=== PATIENT | female | born 1990 | race Two or more races ===

== ENCOUNTER 2017-02-12 09:49 | Emergency (ER) | payer MEDICAID ==
[~2017-02-12] VITALS: Ht 162.6 cm; Wt 68.0 kg
[2017-02-12 10:05] VITALS: BP 117/76
[2017-02-12 10:07] LABS: Urine RBC None Seen /hpf (0 - 4)
[2017-02-12 10:35] LABS: Urine Bilirubin Negative (Negative); Urine Blood Negative /uL (Negative); Urine Color Yellow (Yellow); Urine Glucose Normal (Normal); Urine Ketone Negative (Negative); Urine Mucus FEW (None Seen); Urine Nitrite Negative (Negative); Urine Squamous Epithelial Cell FEW /hpf (<5); Urine Urobilinogen Normal (Negative)
[2017-02-12 10:37] LABS: Eosinophils # (auto) 0.1 uL; Hemoglobin 12.9 g/dL (12.2-16.2); Lymphocytes # (auto) 1.7 uL; Lymphocytes % (auto) 20.9 % (10.0-50.0); Mean Corpuscular Volume 79.1 fL (80.0-100.0); Nucleated Red Blood Cells % 0.1 %
[2017-02-12 10:38] LABS: Basophils # (auto) 0 uL; Basophils % (auto) 0.4 % (0.0-2.0); Eosinophils % (auto) 1.4 % (0.0-7.0); Hematocrit 39.2 % (36.0-46.0); Mean Corpuscular Hgb Conc. 32.8 g/dL (32.0-36.0); Monocytes # (auto) 0.6 uL; Monocytes % (auto) 7.8 % (0.0-12.0); Neutrophils # (auto) 5.6 uL; Neutrophils % (auto) 69.5 % (37.0-80.0); Platelet Count (auto) 262 10^3/uL (140-450); Red Cell Distribution Width 15.5 % (11.8-14.3); White Blood Cell 8.1 10^3/uL (4.4-10.8)
[2017-02-12 10:59] LABS: Albumin 3.9 g/dL (3.4-5.0); BUN/Creatinine Ratio 21.1; Bilirubin, Total 0.4 mg/dL (0.2-1.0); Calcium 8.5 mg/dL (8.5-10.1); Potassium 3.8 mmol/L (3.5-5.1); Total Protein 8.2 g/dL (6.4-8.2)
[2017-02-12] MEDS: DONNATAL 5ml ORAL Elix (BELLADONNA ALK-PHENOBARB) PO ONE (11:40)
[2017-02-12] MEDS: ALUM & MAG HYDROX-SIMETH LIQ(MAALOX) 30 ML PO ONE (11:40)
[2017-02-12] MEDS: LIDOCAINE VISCOUS 2% 15ML UD PO ONE (11:40)
[2017-02-12] MEDS: FAMOTIDINE 20 MG TAB PO ONE (11:40)
== END 2017-02-12 12:04 | disposition home or self-care (01) ==
LOC: ER 09:59
DX: K21.9 Gastro-esophageal reflux disease without esophagitis (principal)
CPT/HCPCS: 36415; 76705; 80053; 81001; 81025; 82150; 83690; 85025

== ENCOUNTER 2020-06-27 00:33 | Emergency (ER) | payer MEDICAID ==
[~2020-06-27] VITALS: Ht 162.6 cm; Wt 65.3 kg
[2020-06-27 00:35] VITALS: BP 137/70
== END 2020-06-27 03:13 | disposition home or self-care (01) ==
LOC: ER 00:33
DX: B37.89 Other sites of candidiasis (principal); Z32.02 Encounter for pregnancy test, result negative
CPT/HCPCS: 81025

== ENCOUNTER 2020-11-21 12:24 | Emergency (ER) | payer MEDICAID ==
[~2020-11-21] VITALS: Ht 162.6 cm; Wt 58.5 kg
[2020-11-21 12:27] VITALS: BP 124/69
[2020-11-21 12:53] LABS: Basophils # (auto) 0 10 ^3/uL (0-0.2); Basophils % (auto) 0.7 % (0.0-2.0); Eosinophils # (auto) 0.2 10 ^3/uL (0-0.8); Eosinophils % (auto) 2.6 % (0.0-7.0); Hematocrit 40.1 % (36.0-46.0); Hemoglobin 13.5 g/dL (12.2-16.2); Lymphocytes # (auto) 2.1 10 ^3/uL (0.4-5.4); Lymphocytes % (auto) 30.4 % (10.0-50.0); Mean Corpuscular Hemoglobin 29.2 pg (28.0-32.0); Mean Corpuscular Hgb Conc. 33.7 g/dL (32.0-36.0); Mean Corpuscular Volume 86.7 fL (80.0-100.0); Monocytes # (auto) 0.5 10 ^3/uL (0-1.3); Monocytes % (auto) 6.5 % (0.0-12.0); Neutrophils # (auto) 4.2 10 ^3/uL (1.6-8.6); Neutrophils % (auto) 59.8 % (37.0-80.0); Nucleated Red Blood Cells % 0.1 %; Red Blood Cells 4.63 10^6/uL (4.0-5.20); Red Cell Distribution Width 13.2 % (11.8-14.3)
[2020-11-21 13:09] LABS: Albumin 3.5 g/dL (3.4-5.0); Anion Gap 8 (5-15); Blood Urea Nitrogen 18 mg/dL (7-18); Calcium 8.7 mg/dL (8.5-10.1); Carbon Dioxide 25 mmol/L (21-32); Chloride 109 mmol/L (98-107); GFR African American 146 mL/min; GFR Non-African American 121 mL/min; Glucose 96 mg/dL (74-106); Potassium 3.7 mmol/L (3.5-5.1); Sodium 142 mmol/L (136-145)
[2020-11-21 13:15] LABS: Alanine Aminotransferase 13 U/L (13-56); Alkaline Phosphatase 94 U/L (45-117); Aspartate Aminotransferase 6 U/L (15-37); Bilirubin, Total 0.4 mg/dL (0.2-1.0); Total Protein 7.4 g/dL (6.4-8.2)
== END 2020-11-21 16:29 | disposition home or self-care (01) ==
LOC: ER 12:24
DX: R07.89 Other chest pain (principal); F41.9 Anxiety disorder, unspecified; R42 Dizziness and giddiness
CPT/HCPCS: 36415; 80053; 84484; 85025; 93005

== ENCOUNTER 2022-04-27 20:20 | Emergency (ER) | payer MEDICAID ==
[~2022-04-27] VITALS: Ht 162.6 cm; Wt 70.3 kg
[2022-04-27 21:03] VITALS: BP 111/92
== END 2022-04-27 22:46 | disposition home or self-care (01) ==
LOC: ER 20:24
DX: M79.661 Pain in right lower leg (principal)
CPT/HCPCS: 93971

== ENCOUNTER → 2022-06-11 | Emergency (ER) | payer MEDICAID ==
[~2022-06-11] VITALS: Ht 162.6 cm; Wt 66.0 kg
[2022-06-11 02:25] VITALS: BP 110/66
[2022-06-11 02:45] LABS: Basophils # (auto) 0.1 10 ^3/uL (0-0.2); Basophils % (auto) 0.8 % (0.0-2.0); Eosinophils # (auto) 0.1 10 ^3/uL (0-0.8); Eosinophils % (auto) 1.4 % (0.0-7.0); Hematocrit 38.5 % (36.0-46.0); Hemoglobin 13.5 g/dL (12.2-16.2); Lymphocytes # (auto) 2.8 10 ^3/uL (0.4-5.4); Lymphocytes % (auto) 29.1 % (10.0-50.0); Mean Corpuscular Hemoglobin 29.8 pg (28.0-32.0); Monocytes # (auto) 0.8 10 ^3/uL (0-1.3); Neutrophils # (auto) 5.8 10 ^3/uL (1.6-8.6); Neutrophils % (auto) 60.7 % (37.0-80.0); Nucleated Red Blood Cells % 0.1 %; Red Blood Cells 4.53 10^6/uL (4.0-5.20); Red Cell Distribution Width 12.6 % (11.8-14.3); White Blood Cell 9.6 10^3/uL (4.4-10.8)
[2022-06-11 02:59] LABS: BUN/Creatinine Ratio 15.6 (10.0-20.0); Calcium 10.1 mg/dL (8.5-10.1); Magnesium 2.1 mg/dL (1.6-2.6)
[2022-06-11 03:02] LABS: INR 0.95 (0.9-1.15); Partial Thromboplastin Time 31.6 sec (24.6-33.4)
[2022-06-11 03:13] LABS: Albumin 3.9 g/dL (3.4-5.0); Bilirubin, Total 0.4 mg/dL (0.2-1.0); Total Protein 8.2 g/dL (6.4-8.2)
[2022-06-11 03:16] LABS: Urine Bacteria NONE SEEN /hpf (None Seen); Urine Blood Negative /uL (Negative); Urine Specific Gravity 1.001 (1.001-1.035); Urine WBC 1 /hpf (0 - 5)
== END | disposition left against medical advice (07) ==
LOC: ER 02:18
DX: R07.2 Precordial pain (principal); Z53.21 Procedure and treatment not carried out due to patient leaving prior to being seen by health care provider
CPT/HCPCS: 36415; 71045; 80053; 81001; 83735; 83880; 84484; 85025; 85610; 85730; 93005

== ENCOUNTER 2022-11-04 17:09 | Emergency (ER) | payer MEDICAID ==
[~2022-11-04] VITALS: Ht 162.6 cm; Wt 68.2 kg
[2022-11-04 17:10] VITALS: BP 107/65; RESP 16; O2SAT 99
[2022-11-04 17:43] LABS: Urine Bacteria NONE SEEN /hpf (None Seen); Urine Blood Negative /uL (Negative); Urine Clarity Clear (Clear); Urine Color Colorless (Yellow); Urine Protein, UAD Negative (Negative); Urine Specific Gravity 1.007 (1.001-1.035); Urine Urobilinogen Normal (Negative); Urine WBC 1 /hpf (0 - 5); Urine pH 6.5 (5.0-8.0)
[2022-11-04 17:45] LABS: Basophils # (auto) 0.1 10 ^3/uL (0-0.2); Eosinophils # (auto) 0.1 10 ^3/uL (0-0.8); Eosinophils % (auto) 1.5 % (0.0-7.0); Hematocrit 41.5 % (36.0-46.0); Hemoglobin 13.8 g/dL (12.2-16.2); Lymphocytes # (auto) 2.1 10 ^3/uL (0.4-5.4); Lymphocytes % (auto) 31.5 % (10.0-50.0); Mean Corpuscular Hemoglobin 28.8 pg (28.0-32.0); Mean Corpuscular Hgb Conc. 33.2 g/dL (32.0-36.0); Mean Corpuscular Volume 86.8 fL (80.0-100.0); Monocytes # (auto) 0.5 10 ^3/uL (0-1.3); Monocytes % (auto) 7.8 % (0.0-12.0); Neutrophils # (auto) 3.8 10 ^3/uL (1.6-8.6); Neutrophils % (auto) 58.2 % (37.0-80.0); Nucleated Red Blood Cells % 0.1 %; Red Blood Cells 4.78 10^6/uL (4.0-5.20); Red Cell Distribution Width 13.4 % (11.8-14.3); White Blood Cell 6.5 10^3/uL (4.4-10.8)
[2022-11-04 18:04] LABS: Alanine Aminotransferase 13 U/L (7-40); Albumin 4.7 g/dL (3.2-4.8); Alkaline Phosphatase 98 U/L (46-116); Anion Gap 7 (5-15); Aspartate Aminotransferase < 8 U/L (13-40); BUN/Creatinine Ratio 15.1 (10.0-20.0); Blood Urea Nitrogen 11 mg/dL (9-23); Calcium 9.2 mg/dL (8.7-10.4); Carbon Dioxide 24 mmol/L (20-30); Chloride 109 mmol/L (98-107); Glucose 97 mg/dL (74-106); Sodium 140 mmol/L (136-145)
[2022-11-04 18:05] LABS: Bilirubin, Total 0.3 mg/dL (0.2-1.0); Total Protein 7.5 g/dL (5.7-8.2)
[2022-11-04 18:10] VITALS: PULSE 75
[2022-11-04 19:03] LABS: COVID19 ANTIGEN SOFIA FIA NEGATIVE (NEGATIVE)
== END 2022-11-04 20:32 | disposition left against medical advice (07) ==
LOC: ER 17:09
DX: R07.89 Other chest pain (principal); R10.2 Pelvic and perineal pain; E78.5 Hyperlipidemia, unspecified; Z20.822 Contact with and (suspected) exposure to COVID-19
CPT/HCPCS: 36415; 80053; 81001; 83735; 84484; 84702; 85025; 85379; 87426; 93005

== ENCOUNTER 2023-01-30 18:06 | Emergency (ER) | payer MEDICAID ==
[~2023-01-30] VITALS: Ht 162.6 cm; Wt 67.4 kg
[2023-01-30 19:56] LABS: Basophils # (auto) 0 10 ^3/uL (0-0.2); Basophils % (auto) 0.3 % (0.0-2.0); Eosinophils # (auto) 0.1 10 ^3/uL (0-0.8); Eosinophils % (auto) 0.7 % (0.0-7.0); Hematocrit 40.6 % (36.0-46.0); Hemoglobin 13.5 g/dL (12.2-16.2); Lymphocytes # (auto) 1.9 10 ^3/uL (0.4-5.4); Lymphocytes % (auto) 20.9 % (10.0-50.0); Mean Corpuscular Hgb Conc. 33.2 g/dL (32.0-36.0); Mean Corpuscular Volume 87.3 fL (80.0-100.0); Monocytes # (auto) 0.6 10 ^3/uL (0-1.3); Monocytes % (auto) 7.1 % (0.0-12.0); Neutrophils # (auto) 6.3 10 ^3/uL (1.6-8.6); Nucleated Red Blood Cells % 0.1 %; Red Blood Cells 4.65 10^6/uL (4.0-5.20); White Blood Cell 8.9 10^3/uL (4.4-10.8)
[2023-01-30 20:08] LABS: Urine Bacteria FEW /hpf (None Seen); Urine Blood Negative /uL (Negative); Urine Clarity Clear (Clear); Urine Protein, UAD Negative (Negative); Urine Specific Gravity 1.007 (1.001-1.035); Urine Urobilinogen Normal (Negative); Urine WBC 1 /hpf (0 - 5)
[2023-01-30 20:12] LABS: Urine Color STRAW (Yellow)
[2023-01-30 20:20] LABS: Alanine Aminotransferase 20 U/L (7-40); Albumin 4.7 g/dL (3.2-4.8); Alkaline Phosphatase 85 U/L (46-116); Anion Gap 8 (5-15); Aspartate Aminotransferase 10 U/L (13-40); BUN/Creatinine Ratio 10.1 (10.0-20.0); Blood Urea Nitrogen 7 mg/dL (9-23); Calcium 9.6 mg/dL (8.5-10.1); Carbon Dioxide 25 mmol/L (20-30); Chloride 106 mmol/L (98-107); Glucose 93 mg/dL (74-106); Potassium 4.1 mmol/L (3.5-5.1); Sodium 139 mmol/L (136-145)
[2023-01-30 20:21] LABS: Bilirubin, Total 0.4 mg/dL (0.2-1.0); Total Protein 7.5 g/dL (5.7-8.2)
[2023-01-30 20:38] LABS: Lipase 42 U/L (12-53)
[2023-01-30] MEDS ORDERED: NAPR-1334 PO (20:44)
[2023-01-30] MEDS ORDERED: ZOFR4T PO (20:44)
[2023-01-30] MEDS ORDERED: DICY10CA PO (20:44)
[2023-01-30 21:34] VITALS: BP 108/72; PULSE 83; RESP 17; TEMP 98.4; O2SAT 99
== END 2023-01-30 21:35 | disposition home or self-care (01) ==
LOC: ER 18:06
DX: R10.13 Epigastric pain (principal); K80.50 Calculus of bile duct without cholangitis or cholecystitis without obstruction; R59.9 Enlarged lymph nodes, unspecified; E78.5 Hyperlipidemia, unspecified; Z79.899 Other long term (current) drug therapy
CPT/HCPCS: 36415; 74176; 76705; 80053; 81001; 81025; 83690; 85025

== ENCOUNTER 2024-11-28 23:21 | Emergency (ER) | payer MEDICAID ==
[~2024-11-28] VITALS: Ht 162.6 cm; Wt 56.8 kg
[~2024-11-28 23:21] MED LIST: DICY10CA PO; NAPR-1335 PO; ZOFR4T PO
--- NOTE | 2024-11-28 23:49 | ED.PDOC ---
HPI Comments HPI: 34 year old female presents to the ED via EMS with a chief complaint of palpitations onset today (11/28/24). Per EMS, patient's fiance witnessed a seizure-like episode, called 911. Upon their arrival, patient was tachycardiac 140 bpm, was experiencing palpations, began experiencing nausea/vomiting in route to ED. She was given 1L IVF in route to ED. Patient states she does not recall events, does not know if it was a seizure. Patient took Oxycodone prior to EMS arrival due to breast pain s/p breast augmentation a few months ago. Denies fall, injury, head injury, abdominal pain, shortness of breath, dizziness, headache, fever, chills. No other symptoms or modifying factors present at this time. Initial Vitals BP: 120/82 HR: 140 RR: 19 O2: 96% Temp: 97.7 F Past Medical History: anxiety, hyperthyroid, HLD, DEPRESSION Past Surgical History: breast augmentation Social History: Denies ETOH, smoking, and drug use. Medications: Prozac, methimazole Allergies: NKDA HPI: Poor Historian. REVIEW OF SYSTEMS: CONSTITUTIONAL: Denies acute: fever, diaphoresis, chills, generalized weakness. HEAD: Denies acute: headache, photophobia Eyes: Denies acute: Double vision, vision loss, eye pain, eye discharge. EARS: Denies acute: tinnitus, hearing loss, ear discharge, ear pain, THROAT: Denies acute: sore throat, swelling, difficulty swallowing , pain with swallowing, change in voice. NECK: Denies acute: neck pain, neck swelling, stiff neck. HEART: Denies acute : chest pain, LUNGS: Denies acute: SOB, wheezing, cough, hemoptysis ABDOMEN: Denies acute: abdominal pain, diarrhea, melena , hematemesis, hematochezia SKIN: Denies acute: rash, redness, lesions, itchiness. EXTREMITIES: Denies acute: calf pain, numbness, tingling, weakness, denies pain in extremity. Denies acute: Low back pain. Neuro: Denies acute: focal neurological deficit, motor or sensory focal neurological deficit, confusion, dizziness, change in mental status, loss of bowel or bladder function, cauda equina like symptoms. : Denies acute: dysuria, hematuria, flank pain, increase in urinary frequency. PSYCH: Denies acute: hallucination, suicidal ideation, homicidal ideation. FEMALE: Denies acute: abnormal vaginal bleeding, foul odor, unusual discharge. PHYSICAL EXAM: General: ----MILD----acute distress, awake and alert. Head: normocephalic, atraumatic. Neck: supple, trachea is midline, no swelling. Throat: Normal phonation. Eyes:, no erythema, no purulent discharge, no proptosis, no icterus. Heart: regular TACHYCARDIA no significant murmur appreciated. Lungs: no apparent respiratory distress, Able to speak in full sentences. No wheezing, no rhonchi, no crackles. No stridors Clear to auscultation bilaterally. Abdomen: non tender to palpation, non distended, soft, no guarding, no rebound, + bowel sounds. Neuro: Awake, Alert, oriented to name, self, situation, follows commands GCS=15. Speech is normal. Skin: no petechia, no purpura, no cyanosis, non-pale, not jaundice. Lower extremities: --no - Pitting edema no deformity, no focal swelling, no calf TTP. Makes eye contact. moves all four extremities. Face: no apparent facial droop. Ambulating in the ED independently. ED COURSE: DISCLAIMER: This medical document was created using an electronic medical record system with voice recognition software and computerized dictation system. Although this document has been carefully reviewed, there might still be some phonetic and typographical errors. Occasional wrong-word or "sound-alike" substitutions may have occurred due to the inherent limitations of voice recognition software. These areas are purely typographical due to imperfections of the software p clara and do not reflect any compromise in the patient's medical care. Please read the chart carefully and recognize, using context, where these substitutions have occurred. Time Seen by MD: 23:40 Primary Care Provider: MARU Reviewed Notes: Medications, Allergies Allergies: Coded Allergies: NO KNOWN ALLERGIES (Unverified , 11/05/14) Home Meds Active Scripts Naproxen Sodium (Naproxen) 220 Mg Tab, 220 MG PO BID for 7 Days, #14 TAB Prov:TREVON SILVA MD 01/30/23 Ondansetron Odt 4MG Tab (ZOFRAN PO) 4 Mg Tb, 4 MG PO TID for 7 Days, #21 TAB ODT TAB-DISSOLVE IN MOUTH, THEN SWALLOW Prov:TREVON SILVA MD 01/30/23 Dicyclomine Hcl (BENTYL CAPSULE) 10 Mg Cp, 1 CAP PO TID for 4 Days, #12 CAP 3 Refills Prov:TREVON SILVA MD 01/30/23 Information Source: Patient, Emergency Med Personnel Mode of Arrival: EMS Severity: Moderate Timing: Hours Duration: Since onset Prehospital treatment: IVF Past Medical History PAST MEDICAL HISTORY: Anxiety, High Lipids, Thyroid Surgical History: Denies all surgeries MEAT CARVER 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 Was a procedure done?: No X-Ray, Labs, Meds, VS Vital Signs Date Time Temp Pulse Resp B/P (MAP) Pulse Ox O2 Delivery O2 Flow Rate FiO2 11/29/24 00:40 101 11/28/24 23:25 97.7 120 19 117/65 96 97.7 11/28/24 23:23 139 Lab Test 11/29/24 02:44 11/29/24 01:44 11/29/24 00:36 11/28/24 23:50 Range/Units Troponin I High Sensitivity < 3 L < 3 L < 3 L </=34 ng/L Lactic Acid Level 1.0 2.6 *H 0.4-2.0 mmol/L White Blood Count 8.0 4.4-10.8 10^3/uL Red Blood Count 3.75 L 4.0-5.20 10^6/uL Hemoglobin 11.5 L 12.2-16.2 g/dL Hematocrit 33.5 L 36.0-46.0 % Mean Corpuscular Volume 89.5 80.0-100.0 fL Mean Corpuscular Hemoglobin 30.6 28.0-32.0 pg Mean Corpuscular Hemoglobin Concent 34.3 32.0-36.0 g/dL Red Cell Distribution Width 12.7 11.8-14.3 % Platelet Count 210 140-450 10^3/uL Mean Platelet Volume 7.8 6.9-10.8 fL Neutrophils (%) (Auto) 69.8 37.0-80.0 % Lymphocytes (%) (Auto) 20.3 10.0-50.0 % Monocytes (%) (Auto) 8.6 0.0-12.0 % Eosinophils (%) (Auto) 1.0 0.0-7.0 % Basophils (%) (Auto) 0.3 0.0-2.0 % Neutrophils # (Auto) 5.6 1.6-8.6 10 ^3/uL Lymphocytes # (Auto) 1.6 0.4-5.4 10 ^3/uL Monocytes # (Auto) 0.7 0-1.3 10 ^3/uL Eosinophils # (Auto) 0.1 0-0.8 10 ^3/uL Basophils # (Auto) 0 0-0.2 10 ^3/uL Nucleated Red Blood Cells 0.1 % Sodium Level 142 136-145 mmol/L Potassium Level 3.8 3.5-5.1 mmol/L Chloride Level 108 H 98-107 mmol/L Carbon Dioxide Level 22 20-31 mmol/L Anion Gap 12 5-15 Blood Urea Nitrogen < 5 L 9-23 mg/dL Creatinine 0.65 0.550-1.02 mg/dL Glomerular Filtration Rate Calc 119 >90 mL/min BUN/Creatinine Ratio 7.7 L 10.0-20.0 Serum Glucose 102 74-106 mg/dL Calcium Level 7.9 L 8.7-10.4 mg/dL Magnesium Level 1.7 1.6-2.6 mg/dL Total Bilirubin 0.3 0.2-1.0 mg/dL Aspartate Amino Transferase (AST) 14 13-40 U/L Alanine Aminotransferase (ALT) < 9 7-40 U/L Alkaline Phosphatase 69 46-116 U/L Total Protein 6.5 5.7-8.2 g/dL Albumin 4.1 3.2-4.8 g/dL Thyroid Stimulating Hormone (TSH) 1.61 0.55-4.78 uIU/mL Plasma/Serum Blood Alcohol 24.9 H <10 mg/dL Test 11/28/24 23:45 Range/Units Urine Color Light-yellow Yellow Urine Clarity Clear Clear Urine pH 5.0 5.0-9.0 Urine Specific [place] 1.020 1.001-1.035 Urine Protein Trace H Negative Urine Ketones 1+ H Negative Urine Blood Negative Negative /uL Urine Nitrite Negative Negative Urine Bilirubin Negative Negative Urine Urobilinogen Normal Negative mg/dL Urine Leukocyte Esterase Negative Negative /uL Urine RBC None seen 0 - 4 /hpf Urine Microscopic WBC 1 0-5 /HPF Urine Squamous Epithelial Cells Few <5 /hpf Urine Bacteria None seen None Seen /hpf Urine Mucus Few None Seen Urine Glucose Normal Normal mg/dL Urine Test Negative Negative Urine Opiates Screen Pos NEGATIVE Urine Fentanyl Screen Neg NEGATIVE Urine Barbiturates Screen Neg NEGATIVE Urine Phencyclidine Screen Neg NEGATIVE Urine Amphetamines Screen Neg NEGATIVE Urine Benzodiazepines Screen Neg NEGATIVE Urine Cocaine Screen Neg NEGATIVE Urine Cannabinoids Screen Neg NEGATIVE Current Medications Medications (Trade) Dose Ordered Sig/Fatou Route Start Time Stop Time Status Last Admin Sodium Chloride 1,000 ml @ 1,000 mls/hr Q1H ONCE IV 11/28/24 23:45 11/29/24 00:44 DC 11/29/24 00:35 Sucralfate (Carafate Tab) 1 gm ONCE ONCE PO 11/29/24 00:45 11/29/24 00:46 DC 11/29/24 00:48 Pantoprazole Sodium (Protonix Tablet) 40 mg ONCE ONCE PO 11/29/24 00:45 11/29/24 00:46 DC 11/29/24 00:48 Lidocaine HCl (Xylocaine 2% Viscous) 10 ml ONCE ONCE PO 11/29/24 00:45 11/29/24 00:46 DC 11/29/24 00:48 [place] [address] Ph: [phone] DIAGNOSTIC IMAGING Diagnostic Imaging Report : [id number] Signed PATIENT: EVERETTE DUNN ACCT: [id number] UNIT: [id number] : 1990 LOC: ER ROOM / BED: / AGE / SEX: 34 / F ADM STATUS: REG ER SERVICE 2344 ORDERING PHYSICIAN: AURORA GARRIDO DO PROCEDURE(s): CXRP - CHEST PORTABLE REASON: palpitations, ORDER NUMBER(s): [id number], ACCESSION NUMBER(s): [id number] CHEST RADIOGRAPH Indication: palpitations, Technique: 1 view Comparison: XR CHEST 1 VIEW on DOS: 11/26/24, XR CHEST 1 VIEW on DOS: 04/21/24, XR CHEST 1 VIEW on DOS: 10/01/23, XY CHEST PORTABLE on DOS: 06/11/22 FINDINGS: Lines and Tubes: None. Lungs/Pleura: No focal consolidation, pleural effusion or pneumothorax. Cardiomediastinum: Unremarkable. Other: No acute osseous abnormality. IMPRESSION: 1. No acute cardiopulmonary abnormality. ATED BY: RASHIDA VALDOVINOS MD DICTATED DATE/TIME: 11/29/2440 SIGNED BY: RASHIDA VALDOVINOS MD SIGNED DATE/TIME: 11/29/2440 CC: Time of 1ST Reevaluation: 00:10 Reevaluation 1ST: Unchanged Patient Education/Counseling: Diagnosis, Treatment Family Education/Counseling: No Family Present Departure 1 Departure Time of Disposition: 03:48 Impression: Primary Impression: Sinus tachycardia Additional Impression: Palpitations Disposition: 01 HOME / SELF CARE / HOMELESS Condition: Stable Additional Instructions: Additional instructions: Please read all instructions provided in this packet carefully. You MUST follow-up with your primary care/family doctor in 1 to 2 days. If you are unable to see your primary care/family doctor, please return to our emergency room for re-assessment and re-evaluation in 1 to 2 days. Return to the emergency room here in our facility or to the nearest ER [facility] if your symptoms change or worsen. CONSULTATIONS: you MUST Follow-up for consultation as soon as possible with: -cardiology in 1-2 days. Please call for appointment. You MUST call the consultants office yourself to make an appointment. You may need to arrange that through your insurance and/or your primary/family doctor. If you are unable to see the data power consultant in 1 to 2 days, you must return to our emergency room (or any other ER of your choice) for re-assessment and re- evaluation. Adequate fluid hydration. Although you have been discharged from the Emergency Department, this does not mean that you have a "clean bill of health". No definitive diagnosis for your symptoms has been made today. It is possible that you are in the process of developing a serious illness. This is why you must return to the ED without fail if any new or worsening symptoms develop. Below is a copy of your radiological report for follow up: [address] - [address] Ph: [phone] DIAGNOSTIC IMAGING Diagnostic Imaging Report : [id number] Signed PATIENT: EVERETTE DUNN ACCT: [id number] UNIT: [id number] : 1990 LOC: ER ROOM / BED: / AGE / SEX: 34 / F ADM STATUS: REG ER SERVICE 2344 ORDERING PHYSICIAN: AURORA GARRIDO DO PROCEDURE(s): CXRP - CHEST PORTABLE REASON: palpitations, ORDER NUMBER(s): [id number], ACCESSION NUMBER(s): [id number] CHEST RADIOGRAPH Indication: palpitations, Technique: 1 view Comparison: XR CHEST 1 VIEW on DOS: 11/26/24, XR CHEST 1 VIEW on DOS: 04/21/24, XR CHEST 1 VIEW on DOS: 10/01/23, XY CHEST PORTABLE on DOS: 06/11/22 FINDINGS: Lines and Tubes: None. Lungs/Pleura: No focal consolidation, pleural effusion or pneumothorax. Cardiomediastinum: Unremarkable. Other: No acute osseous abnormality. IMPRESSION: 1. No acute cardiopulmonary abnormality. ATED BY: RASHIDA VALDOVINOS MD DICTATED DATE/TIME: 11/29/2440 SIGNED BY: RASHIDA VALDOVINOS MD SIGNED DATE/TIME: 11/29/2440 CC: Discharged With: Self Critical Care Note Critical Care Time?: No I personally scribed for AURORA GARRIDO DO ([email or web address]) on 11/28/24 at 23:49. Electronically submitted by Hiwot Cutler ([email or web address]). I personally scribed for AURORA GARRIDO DO ([email or web address]) on 11/29/24 at 01:15. Electronically submitted by Hiwot Cutler ([email or web address]). I personally scribed for AURORA GARRIDO DO ([email or web address]) on 11/29/24 at 01:19. Electronically submitted by Hiwot Cutler ([email or web address]). AURORA GARRIDO DO Nov 28, 2024 23:49
--- NOTE | 2024-11-28 23:49 | ECG ---
[facility] Test Date: 2024-11-28 Test Time: 23:23:38 Pat Name: EVERETTE DUNN Department: [facility] ED Patient ID: [id number] Room: Gender: F Commercial Sales Specialist: JACQUE : 1990 Requested By: EMERGENCY EMERGENCY Order Number: [id number] Reading MD: Jeovany Olivera Measurements Intervals [place] Rate: 139 P: 55 RI: 75 QRS: 87 QRSD: 92 T: 41 QT: 317 QTc: 482 Interpretive Statements Sinus tachycardia Low voltage, extremity and precordial leads Probable anteroseptal infarct, old Electronically Signed On 12-01-2024 20:35:20 PDT by Jeovany Olivera Please click the below link to view image of tracing.
[2024-11-29 00:09] LABS: Hematocrit 33.5 % (36.0-46.0); Hemoglobin 11.5 g/dL (12.2-16.2); Mean Corpuscular Hemoglobin 30.6 pg (28.0-32.0); Mean Corpuscular Volume 89.5 fL (80.0-100.0); Nucleated Red Blood Cells % 0.1 %
[2024-11-29 00:22] LABS: Alkaline Phosphatase 69 U/L (46-116); Carbon Dioxide 22 mmol/L (20-31); Glucose 102 mg/dL (74-106)
[2024-11-29 00:23] LABS: Albumin 4.1 g/dL (3.2-4.8); Anion Gap 12 (5-15); Bilirubin, Total 0.3 mg/dL (0.2-1.0); Magnesium 1.7 mg/dL (1.6-2.6); Potassium 3.8 mmol/L (3.5-5.1); Sodium 142 mmol/L (136-145); Total Protein 6.5 g/dL (5.7-8.2)
[2024-11-29 00:35] LABS: Chloride 108 mmol/L (98-107)
[2024-11-29] MEDS: SODIUM CHLORIDE 0.9% 1,000 ML IV ONE (00:35)
[2024-11-29 00:36] LABS: Alanine Aminotransferase < 9 U/L (7-40); BUN/Creatinine Ratio 7.7 (10.0-20.0); Blood Urea Nitrogen < 5 mg/dL (9-23); Calcium 7.9 mg/dL (8.7-10.4)
--- NOTE | 2024-11-29 00:44 | DVH ---
CHEST RADIOGRAPH Indication: palpitations, Technique: 1 view Comparison: XR CHEST 1 VIEW on DOS: 11/26/24, XR CHEST 1 VIEW on DOS: 04/21/24, XR CHEST 1 VIEW on DOS: 10/01/23, XY CHEST PORTABLE on DOS: 06/11/22 FINDINGS: Lines and Tubes: None. Lungs/Pleura: No focal consolidation, pleural effusion or pneumothorax. Cardiomediastinum: Unremarkable. Other: No acute osseous abnormality. IMPRESSION: 1. No acute cardiopulmonary abnormality.
[2024-11-29 00:47] LABS: Urine Protein, UAD TRACE (Negative)
[2024-11-29 00:48] LABS: Lactic Acid w/Reflex 2.6 mmol/L (0.4-2.0)
[2024-11-29] MEDS: PANTOPRAZOLE 40 MG TAB PO ONE (00:48)
[2024-11-29] MEDS: SUCRALFATE 1 GM TAB PO ONE (00:48)
[2024-11-29] MEDS: LIDOCAINE VISCOUS 2% 15ML UD PO ONE (00:48)
[2024-11-29] MEDS: ONDANSETRON HCL 4 MG/2 ML VIAL IV ONE (01:20)
[2024-11-29 02:56] LABS: Amphetamine Screen, Urine Neg (NEGATIVE)
[2024-11-29 02:57] LABS: Phencyclidine Screen, Urine Neg (NEGATIVE)
[2024-11-29 02:58] LABS: Barbiturate Scree,Urine Neg (NEGATIVE); Benzodiazephine Screen, Urine Neg (NEGATIVE); Cannabinoid Screen, Urine Neg (NEGATIVE); Cocaine Screen, Urine Neg (NEGATIVE); Opiate Scree,Urine Pos (NEGATIVE)
[2024-11-29] MEDS: ACETAMINOPHEN 325 MG TAB PO ONE (04:29)
[2024-11-29 04:32] VITALS: BP 121/79; PULSE 79; RESP 20; TEMP 98.2; O2SAT 100
--- NOTE | 2024-11-29 18:06 | ECG ---
[facility] Test Date: 2024-11-29 Test Time: 00:40:35 Pat Name: EVERETTE DUNN Department: ED Room: Gender: F Surgery Technician: JACQUE : 1990 Requested By: EMERGENCY EMERGENCY Order Number: [id number] Reading MD: Jeovany Olivera Measurements Intervals [place] Rate: 101 P: 72 VA: 165 QRS: 67 QRSD: 87 T: 48 QT: 360 QTc: 467 Interpretive Statements Sinus tachycardia Low voltage, extremity and precordial leads Electronically Signed On 12-01-2024 20:35:44 PDT by Jeovany Olivera Please click the below link to view image of tracing.
== END 2024-11-29 04:41 | disposition home or self-care (01) ==
LOC: ER 23:21 → EDBD 23:21 → ER 11-29 04:41
DX: R00.0 Tachycardia, unspecified (principal); R00.2 Palpitations; E78.5 Hyperlipidemia, unspecified; F32.A Depression, unspecified; F41.9 Anxiety disorder, unspecified
CPT/HCPCS: 36415; 71045; 80053; 80307; 80320; 81001; 81025; 83605; 83735; 84443; 84484; 85025; 93005; 96360; 99285; J7030